=== PATIENT | male | born 1960 | race Caucasian/White ===

== ENCOUNTER 2024-09-19 20:30 | Emergency (ER) | payer BC ==
[~2024-09-19] VITALS: Ht 193 cm; Wt 103.0 kg
[2024-09-19 20:49] LABS: BASOPHILS 0.5 % (0-2); EOSINOPHILS 3.6 % (0-6); HEMATOCRIT 42.9 % (35.0-50.0); HEMOGLOBIN 14.9 g/dL (12.0-18.0); LYMPHOCYTES 24.6 % (24-44); MCH 28.8 (27-36); MCHC 34.6 g/dl (30-36); MCV 83.3 fl (81-99); MONOCYTES 8.9 % (0-12); NEUTROPHILS 62.4 % (39-80); PLATELET COUNT 201 K/uL (140-440); RBC 5.16 M/ul (4.3-5.7); RDW 15.4 (10.5-15.0)
[2024-09-19 21:00] LABS: ALBUMIN 4.4 g/dL (3.4-5.0); ALBUMIN/GLOBULIN RATIO 1.69 (1.1-2.4); ANION GAP 8.8 (7-21); BILIRUBIN, TOTAL 0.5 mg/dL (0.2-1.0); BUN/CREATININE RATIO 36.98 (6.0-28.6); CREATININE, SERUM 0.73 mg/dL (0.70-1.30); POTASSIUM 3.8 mmol/L (3.5-5.1)
[2024-09-19] MEDS ORDERED: methylPREDNISolone 4 MG HOME.PACK PO ONE (22:45)
[2024-09-19 22:50] VITALS: BP 147/96
[2024-09-19] MEDS ORDERED: LISINOPRIL20 MG PO (23:42)
--- NOTE | 2024-09-20 22:54 | EKG ---
[facility] [address] [facility] [place] [address] Signed Sinus rhythm with occasional premature ventricular complexes Right superior axis deviation Pulmonary disease pattern Biventricular hypertrophy Abnormal ECG No previous ECGs available Confirmed by Sandie Askew MD () on 09/20/2024 10:54:37 PM Electronically Signed By: SANDIE ASKEW MD 09/20/24 2254 PATIENT NAME: PABLOJEROMEJEROME Electrocardiogram DATE OF : 56 PHYSICIAN: SANDIE ASKEW MD REPORT #: [id number] REPORT IS CONFIDENTIAL AND NOT TO BE RELEASED WITHOUT AUTHORIZATION
== END 2024-09-19 22:50 | disposition home or self-care (01) ==
LOC: ED 20:30
PROVIDERS: Family Medicine
DX: R42 Dizziness and giddiness (principal)
CPT/HCPCS: 36415; 70450; 70496; 70498; 80053; 83735; 84484; 85025; 93005; 93010; 99284-25; Q9967